=== PATIENT | female | born 1995 | race Two or more races ===

== ENCOUNTER 2018-12-26 11:14 | Emergency (ER) | payer OTHER ==
--- NOTE | 2018-12-26 12:34 | ER Document Report ---
HPI - HPI Time Seen by Provider: 12/26/18 12:28 Pain Level: 2 Notes: Patient is a 23-year-old female G1, P0 approximately 4 weeks by gestation who presents complaining of having some spotting today with occasional pelvic cramps. Patient states that she has been confirmed by her family doctor as well as another emergency department previously. Her family doctor want her evaluate for possible ultrasound. She is otherwise eating and drinking without difficulty. She is urinating normally and having normal bowel movements. No other vaginal odor or discharge. Denies drug allergies. Denies any headache, fever, URI, sore throat, chest pain, palpitations, syncope, cough, shortness of breath, wheeze, dyspnea, current abdominal pain, nausea/vomiting/diarrhea, urinary retention, dysuria, hematuria, back pain, or rash. - ROS Systems Reviewed and Negative: Yes All other systems reviewed and negative - REPRODUCTIVE LMP: 12-01-18 Reproductive: REPORTS: : - DERM Skin Color: Normal Past Medical History - Social History Smoking Status: Never Smoker Frequency of alcohol use: None Drug Abuse: None Family History: Reviewed & Not Pertinent Patient has suicidal ideation: No Patient has homicidal ideation: No Renal/ Medical History: Denies: Hx Peritoneal Dialysis Vertical Provider Document - CONSTITUTIONAL Agree With Documented VS: Yes Notes: PHYSICAL EXAMINATION: GENERAL: Well-appearing, well-nourished and in no acute distress. LUNGS: Breath sounds clear to auscultation bilaterally and equal. No wheezes rales or rhonchi. HEART: Regular rate and rhythm without murmurs, rubs, gallops. ABDOMEN: Soft, nontender, nondistended abdomen. No guarding, no rebound. No masses appreciated. Normal bowel sounds present. No CVA tenderness bilaterally. Extremities: No cyanosis, clubbing, or edema b/l. Peripheral pulses 2+. Capillary refill less than 3 seconds. NEUROLOGICAL: Normal speech, normal gait. PSYCH: Normal mood, normal affect. SKIN: Warm, Dry, normal turgor, no rashes or lesions noted. Course - Re-evaluation Re-evalutation: 12/26/18 Patient is an afebrile, well-hydrated, 23-year-old female who presents with a negative test and vaginal spotting which could be her menstrual cycle. Vitals are acceptable without significant tachycardia, tachypnea, or hypoxia. PE is otherwise unremarkable. Her abdomen is soft nontender. hCG quantitative is negative. Transvaginal ultrasound was also unremarkable at this time. Patient is nontoxic-appearing and is able to tolerate p.o. without difficulty. No further work-up warranted. I did review with patient that if she did have a positive test which is now showing negative that she could have miscarried or previous testing could have been false positives. Low suspicion/risk for acute appendicitis, bowel obstruction, acute cholecystitis, acute cholangitis, perforated diverticulitis, incarcerated hernia, pancreatitis, perforated ulcer, peritonitis, sepsis, pelvic inflammatory disease, ectopic , tubo-ovarian abscess, ovarian torsion, or other systemic emergent condition at this time. Patient is aware that her condition can change from initial presentation and she needs to monitor symptoms closely and seek medical attention if any acute changes. Conservative measures otherwise for symptoms. Recheck with your PCM in 3-5 days. Return to the ED with any worsening/concerning symptoms otherwise as reviewed in discharge. Patient is in agreement. - Vital Signs Vital signs: Temp Pulse Resp BP Pulse Ox 98.2 F 87 18 139/69 H 99 12/26/18 11:29 12/26/18 11:29 12/26/18 11:29 12/26/18 11:29 12/26/18 11:29 Discharge - Discharge Clinical Impression: Negative test, Vaginal spotting Condition: Stable Disposition: HOME, SELF-CARE Additional Instructions: Maintain fluid intake Proper hygienic technique Keep the skin clean Tylenol/ibuprofen as needed F/u with your PCM/OBGYN in 3-5 days for a recheck Return to the ED with any development of MARTIN/fever, trouble with vision, eye redness, worsening pain, urethral discharge, urinary retention, blood in the urine, flank pain, abdominal pain, n/v, Chest Pain, shortness of breath, joint pains, trouble breathing, or any other worsening/concerning symptoms as needed otherwise. Forms: Elevated Blood Pressure Referrals: [facility] [Provider Group] - Follow up as needed
--- NOTE | 2018-12-26 14:38 | RADIOLOGY REPORT (SQ) ---
EXAM DESCRIPTION: U/S NON OB PEL TV W/DOPPLER COMPLETED DATE/TIME: 12/26/2018 2:26 pm REASON FOR STUDY: early preg, spotting COMPARISON: None. TECHNIQUE: Dynamic and static grayscale images acquired of the pelvis via transvaginal approach and recorded on PACS. Additional selected color Doppler and spectral images recorded. LIMITATIONS: None. FINDINGS: Patient has a negative urine quantitative HCG today. UTERUS: Contour normal. No mass. Uterus is 7 x 5 x 4 cm in size ENDOMETRIAL STRIPE: No focal or generalized thickening. No masses. Endometrial stripe 1 cm in thickn ess. CERVIX: Closed, 2.2 cm in length with a 6 mm nabothian cyst RIGHT OVARY AND DOPPLER: Normal size, 4 x 2.6 x 2.3 cm in size. No worrisome masses. Normal arterial vascular flow without evidence for torsion. LEFT OVARY AND DOPPLER: Normal size, 1.8 x 2.7 x 1.6 cm in size. No worrisome masses. Normal arterial vascular flow without evidence for torsion. FREE FLUID: None noted. OTHER: No other significant finding. IMPRESSION: UNREMARKABLE TRANSVAGINAL PELVIC ULTRASOUND. TECHNICAL DOCUMENTATION: JOB ID: [id number] [employer]- All Rights Reserved Rev Reading location - IP/workstation name: [email or web address]
[2018-12-26 14:54] VITALS: BP 104/65
== END 2018-12-26 14:54 | disposition home or self-care (01) ==
LOC: ER 11:14
DX: N93.8 Other specified abnormal uterine and vaginal bleeding (principal); Z32.02 Encounter for pregnancy test, result negative
CPT/HCPCS: 36415; 76830; 84702; 86900; 86901; 93976; 99284

== ENCOUNTER → 2019-03-13 | Outpatient (CLI) | payer OTHER ==
--- NOTE | 2019-03-13 15:20 | RADIOLOGY REPORT (SQ) ---
EXAM DESCRIPTION: HYSTERO CATH/INJECTION; HYSTEROSALPINGOGRAM COMPLETED DATE/TIME: 03/13/2019 1:50 pm REASON FOR STUDY: INFERTILITY COMPARISON: None. PROCEDURE: PRE-PROCEDURE: Procedure was explained to the patient. She was told to expect cramping du ring the procedure, and possible spotting post procedure. PROCEDURE: The cervix was prepped in sterile fashion. Under direct visual inspection, the cervix was cannulated with the hysterosalpingogram catheter and contrast injected. TECHNIQUE: Temporal fluoroscopic images acquired during the procedure stored to PACS. FLUOROSCOPY TIME: 1 minutes 24 seconds. 6 images saved to PACS. LIMITATIONS: None. FINDINGS: UTERUS: No identified anomalies. No synechia. RIGHT ADNEXA: Normal size fallopian tube. Free spill of contrast into the peritoneal cavity. LEFT ADNEXA: Normal size fallopian tube. Free spill of contrast into the peritoneal cavity. POST PROCEDURE: The patient tolerated the procedure with no adverse effects. IMPRESSION: NORMAL HYSTEROSALPINGOGRAM. THE PROCEDURE WAS SOMEWHAT DIFFICULT TO PERFORM BECAUSE THERE WAS PERSISTENT LEAKAGE OF CONTRAST AROU ND THE BALLOON TIPPED CATHETER. THIS MADE CONTRAST FILLING OF THE ENDOMETRIAL CAVITY AND FALLOPIAN T UBES DIFFICULT. THE ORIGINAL CATHETER HAD TO BE REPLACED WITH A LARGER CATHETER AND SUBSEQUENTLY ADD ITIONAL INFLATION WAS NECESSARY OF THE BALLOON TIP TO ACHIEVE ADEQUATE ENOUGH SEAL TO ALLOW CONTRAST FILLING OF THE ENDOMETRIAL CAVITY AND FALLOPIAN TUBES. EVEN THEN THERE WAS PERSISTENT LEAKAGE. THIS MAY BE INDICATION OF LAXITY OF THE CERVIX OR CERVICAL INCOMPETENCE. COMMENT: Study performed by and interpreted by the radiologist. Study performed by EXPERIENCE DESIGNER physician. Supervision and interpretation by the radiologist. Quality ID 145: Final reports for procedures using fluoroscopy that document radiation exposure evan ita, or exposure time and number of fluorographic images (if radiation exposure indices are not avail able) TECHNICAL DOCUMENTATION: JOB ID: [id number] [employer]- All Rights Reserved Reading location - IP/workstation name: [email or web address]
--- NOTE | 2019-03-13 15:20 | RADIOLOGY REPORT (SQ) ---
EXAM DESCRIPTION: HYSTERO CATH/INJECTION; HYSTEROSALPINGOGRAM COMPLETED DATE/TIME: 03/13/2019 1:50 pm REASON FOR STUDY: INFERTILITY COMPARISON: None. PROCEDURE: PRE-PROCEDURE: Procedure was explained to the patient. She was told to expect cramping du ring the procedure, and possible spotting post procedure. PROCEDURE: The cervix was prepped in sterile fashion. Under direct visual inspection, the cervix was cannulated with the hysterosalpingogram catheter and contrast injected. TECHNIQUE: Temporal fluoroscopic images acquired during the procedure stored to PACS. FLUOROSCOPY TIME: 1 minutes 24 seconds. 6 images saved to PACS. LIMITATIONS: None. FINDINGS: UTERUS: No identified anomalies. No synechia. RIGHT ADNEXA: Normal size fallopian tube. Free spill of contrast into the peritoneal cavity. LEFT ADNEXA: Normal size fallopian tube. Free spill of contrast into the peritoneal cavity. POST PROCEDURE: The patient tolerated the procedure with no adverse effects. IMPRESSION: NORMAL HYSTEROSALPINGOGRAM. THE PROCEDURE WAS SOMEWHAT DIFFICULT TO PERFORM BECAUSE THERE WAS PERSISTENT LEAKAGE OF CONTRAST AROU ND THE BALLOON TIPPED CATHETER. THIS MADE CONTRAST FILLING OF THE ENDOMETRIAL CAVITY AND FALLOPIAN T UBES DIFFICULT. THE ORIGINAL CATHETER HAD TO BE REPLACED WITH A LARGER CATHETER AND SUBSEQUENTLY ADD ITIONAL INFLATION WAS NECESSARY OF THE BALLOON TIP TO ACHIEVE ADEQUATE ENOUGH SEAL TO ALLOW CONTRAST FILLING OF THE ENDOMETRIAL CAVITY AND FALLOPIAN TUBES. EVEN THEN THERE WAS PERSISTENT LEAKAGE. THIS MAY BE INDICATION OF LAXITY OF THE CERVIX OR CERVICAL INCOMPETENCE. COMMENT: Study performed by and interpreted by the radiologist. Study performed by SENIOR INSTRUMENTATION ENGINEER physician. Supervision and interpretation by the radiologist. Quality ID 145: Final reports for procedures using fluoroscopy that document radiation exposure evan ita, or exposure time and number of fluorographic images (if radiation exposure indices are not avail able) TECHNICAL DOCUMENTATION: JOB ID: [id number] [email or web address]- All Rights Reserved Reading location - IP/workstation name: [email or web address]
== END ==
LOC: RAD 12:30
PROVIDERS: ATTEND Obstetrics & Gynecology
DX: N97.9 Female infertility, unspecified (principal)
CPT/HCPCS: 58340; 74740